=== PATIENT | female | born 1970 | race Caucasian/White ===

== ENCOUNTER 2020-03-10 08:02 | Emergency (ER) | payer SELFPAY ==
[~2020-03-10] VITALS: Ht 172.7 cm; Wt 56.7 kg
[2020-03-10] MEDS ORDERED: PREDNISONE20 MG PO (08:38)
[2020-03-10] MEDS ORDERED: CYCLOBENZAPRINE5 MG PO (08:38)
[2020-03-10] MEDS ORDERED: PREDNISONE 20 MG TAB PO ONE (08:45)
[2020-03-10] MEDS ORDERED: CYCLOBENZAPRINE HCL 10 MG TAB PO ONE (08:45)
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
--- NOTE | 2020-03-10 08:52 | NUR ---
pt refused steriods, states she told the doc that she did not want steriods.
[2020-03-10] MEDS ORDERED: PREDNISONE 20 MG TAB ONE (08:55)
[2020-03-10] MEDS ORDERED: CYCLOBENZAPRINE HCL 10 MG TAB ONE (08:56)
== END 2020-03-10 09:04 | disposition home or self-care (01) ==
LOC: FSED 08:30
DX: M54.6 Pain in thoracic spine (principal); S29.012A Strain of muscle and tendon of back wall of thorax, initial encounter; X50.0XXA Overexertion from strenuous movement or load, initial encounter; Y99.0 Civilian activity done for income or pay; I10 Essential (primary) hypertension; F41.9 Anxiety disorder, unspecified; G89.29 Other chronic pain
CPT/HCPCS: 99282; J7512